=== PATIENT | female | born 1950 | race Two or more races ===

== ENCOUNTER 2022-08-08 23:10 | Emergency (ER) | payer OTHER ==
[~2022-08-08] VITALS: Ht 152.4 cm; Wt 68.6 kg
[2022-08-08 23:25] VITALS: BP 126/66
[2022-08-09] MEDS ORDERED: diphenhdrAMINE HCL 25 MG CAP PO ONE (00:30)
[2022-08-09] MEDS ORDERED: DexAMETHasone SOD PHOS 10MG/1ML VIAL INJ IM ONE (00:30)
[2022-08-09] MEDS ORDERED: FAMOTIDINE 20 MG TAB PO ONE (00:30)
[2022-08-09] MEDS ORDERED: DIPH25CA51 PO (00:35)
[2022-08-09] MEDS ORDERED: FAMO20TA10 PO (00:35)
[2022-08-09] MEDS ORDERED: PRED10TA PO (00:35)
== END 2022-08-09 00:52 | disposition home or self-care (01) ==
LOC: ER 23:10
DX: L50.0 Allergic urticaria (principal)
CPT/HCPCS: 96372; 99283; J1100